=== PATIENT | male | born 1970 | race Caucasian/White ===

== ENCOUNTER 2021-10-16 16:51 | Emergency (ER) | payer OTHER ==
[~2021-10-16 16:51] MED LIST: MIRALAX 119 GR119 GM PO; PROTONIX40 MG PO; ZOFRAN4 MG PO
[2021-10-16 18:37] LABS: HEMOGLOBIN 16.1 gm/dl (14.0-17.5); RED BLOOD COUNT 4.82 M/UL (4.20-5.50); WHITE BLOOD COUNT 8.6 K/UL (4.5-11.0)
[2021-10-16 19:15] LABS: BUN/CREATININE RATIO 14 (0-10)
[2021-10-16] MEDS ORDERED: LOPRESSOR50 MG PO (23:01)
== END 2021-10-16 23:50 | disposition home or self-care (01) ==
LOC: ER1 16:51
PROVIDERS: Physician Assistant
DX: I10 Essential (primary) hypertension (principal); F17.200 Nicotine dependence, unspecified, uncomplicated
CPT/HCPCS: 71260; 80053; 82550; 82553; 83874; 84484; 85025; 93005; 99284; Q9967

== ENCOUNTER 2022-01-10 18:59 | Emergency (ER) | payer OTHER ==
[~2022-01-10 18:59] MED LIST changes: +LOPRESSOR50 MG PO
[2022-01-11 00:03] LABS: HEMOGLOBIN 14.5 gm/dl (14.0-17.5); RED BLOOD COUNT 4.41 M/UL (4.20-5.50); WHITE BLOOD COUNT 8.5 K/UL (4.5-11.0)
[2022-01-11 01:23] LABS: BUN/CREATININE RATIO 10 (0-10)
== END 2022-01-11 03:50 | disposition home or self-care (01) ==
LOC: ER1 18:59
PROVIDERS: Physician Assistant
DX: R42 Dizziness and giddiness (principal); I10 Essential (primary) hypertension; F17.210 Nicotine dependence, cigarettes, uncomplicated; Z87.09 Personal history of other diseases of the respiratory system
CPT/HCPCS: 70450; 70496; 70498; 71045; 80053; 82550; 82553; 84484; 85025; 93005; 99285; J7030; Q9967